=== PATIENT | male | born 1965 | race African-American/Black ===

== ENCOUNTER 2016-12-31 10:58 | Emergency (ER) | payer SELFPAY ==
[~2016-12-31] VITALS: Ht 167.6 cm; Wt 81.6 kg
[2016-12-31 11:25] VITALS: BP 146/93
[2016-12-31] MEDS ORDERED: DIPHTH,PERTUSS(ACELL),TET TOX 0.5 ML DISP.SYRIN. VAX IM ONE (11:40)
[2016-12-31] MEDS ORDERED: HYDROcodone/APAP 5/325MG 1 TAB TABLET PO ONE (11:40)
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
[2016-12-31] MEDS ORDERED: HYDR-971 PO (12:32)
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
== END 2016-12-31 12:53 | disposition home or self-care (01) ==
LOC: ER 10:58
DX: S52.602A Unspecified fracture of lower end of left ulna, initial encounter for closed fracture (principal); F17.210 Nicotine dependence, cigarettes, uncomplicated; Z88.0 Allergy status to penicillin; Y08.89XA Assault by other specified means, initial encounter; Y93.89 Activity, other specified; Y92.89 Other specified places as the place of occurrence of the external cause; Y99.8 Other external cause status
CPT/HCPCS: 29125; 73090; 73130; 90471; 90715; 99284-25